=== PATIENT | male | born 1985 | race Caucasian/White ===

== ENCOUNTER 2019-10-26 10:48 | Emergency (ER) | payer BC, SELFPAY ==
--- NOTE | ~2019-10-26 | XR_ITS ---
EXAMINATION: XR ankle RT 2V DATE: 10/26/2019 11:22 INDICATION: Right posterior heel and ankle laceration. TECHNIQUE: 2 views of right ankle were obtained. COMPARISON: None. FINDINGS: Bone alignment is normal. No fracture. Joint spaces are well maintained. IMPRESSION: 1. No fracture or radiopaque foreign body. Reviewed, dictated and finalized at location A.
--- NOTE | 2019-10-26 10:53 | ED.GENADULT ---
HPI - General Adult General Chief complaint: Wound/Laceration Stated complaint: Right heel injury Time Seen by Provider: 10/26/19 11:01 Source: patient Mode of arrival: ambulatory Limitations: no limitations History of Present Illness HPI narrative: 34-year-old male patient presents to the [facility] with complaints of a wound to the right heel. Patient states he went hiking yesterday and got cut with a type of stick. Patient states that he washed out yesterday with hydrogen peroxide and states he just went to bed. Denies taking anything for the pain yesterday or today. Unsure of when his last tetanus shot was. Patient states he is having a lot of pain to the heel and states that is been hard to walk on it. Related Data Home Medications Medication Instructions Recorded Confirmed Men's Multivitamin 10/26/19 Allergies Allergy/AdvReac Type Severity Reaction Status Date / Time citalopram Allergy Unknown Verified 03/31/13 17:54 fluoxetine Allergy Unknown Verified 03/31/13 17:54 infliximab Allergy Unknown Verified 02/19/10 16:51 Review of Systems Review of Systems: Narrative: CONSTITUTIONAL: Denies fever, chills, or sweats. EYES: Denies visual changes, redness, or discharge. ENT: Denies rhinorrhea, congestion, sore throat, or otalgia. CARDIOVASCULAR: Denies chest pain, palpitations, or edema. RESPIRATORY: Denies cough or dyspnea. GASTROINTESTINAL: Denies abdominal pain, nausea, vomiting, or diarrhea. GENITOURINARY: Denies dysuria or hematuria. SKIN: Denies rash or itching. Positive laceration to back of heel since yesterday. MUSCULOSKELETAL: Denies back pain, joint pain, or myalgia. NEUROLOGIC: Denies headache, numbness, or weakness. PSYCHIATRIC: Denies anxiety or depression. [facility] Family History Family History Sibling Family history of malignant neoplasm Grandparent Hypertension Family history of cardiovascular disease Carcinoma of colon Social History Social History Smoking status: Never smoker Second hand tobacco smoke exposure: No Alcohol intake: current Substance use type: marijuana Comments At the time of my signature I agree with nursing past medical history, surgical, social, and family history. There is no relevant family history pertinent to the presenting complaint. Exam Narrative: Exam Narrative: GENERAL: Well-appearing, well-nourished, and in no acute distress. HEAD: Normocephalic, atraumatic. EYES: PERRLA and EOMI. ENT: Nares clear, no rhinorrhea or epistaxis. Mucous membranes moist. NECK: Supple. No lymphadenopathy CHEST: Clear to auscultation. No respiratory distress. HEART: Regular rate and rhythm. No murmur heard. Normal peripheral pulses. ABDOMEN: Soft, nontender, nondistended, normal active bowel sounds. EXTREMITIES: Patient is unable to bear weight and ambulate without pain to right foot. The R ankle is without obvious asymmetry or deformity when compared to the L ankle. Patient can flex/extend, invert/dorys. Patient has approximately 2 cm horizontal laceration noted over the posterior ankle right across the Achilles tendons area. There is no active bleeding at this time. No body tenderness to palpation over the medial or lateral malleolus. Anterior talofibular ligament, pain noted over the posterior talofibular ligament, no pain noted to the calcaneofibular ligament nontender and without swelling. No tenderness or deformity of the midfoot or over the proximal fifth metatarsal. Good DP and posterior tibial pulses and sensation to light touch normal. Talar tilt test is negative for ligament laxity to valgus or vargus stress. Negative anterior draw. Peroneal nerve is intact with strong eversion and plantar flexion. SKIN: Warm, dry, no rash. NEURO: No focal deficits. Alert and oriented x3. Course Reevaluation(s) Reevaluation #1: Notify patient that the x-ray is negative f
[2019-10-26 11:00] VITALS: BP 140/79; PULSE 97; RESP 16; TEMP 36.8; O2SAT 99
[2019-10-26] MEDS: TETANUS,DIPHTHERIA,AC PERTUSSIS ADULT 0.5 ML (ADACEL) IM (11:29)
== END 2019-10-26 11:50 | disposition home or self-care (01) ==
PROVIDERS: Emergency Provider Nurse Practitioner Family; PCP Family Medicine
DX: S91.011A Laceration without foreign body, right ankle, initial encounter (principal); W45.8XXA Other foreign body or object entering through skin, initial encounter; Z23 Encounter for immunization; K50.90 Crohn's disease, unspecified, without complications
CPT/HCPCS: 73600; 90471; 90715; 99213; G0463

== ENCOUNTER 2020-08-14 06:54 | Outpatient (NON) | payer BC, SELFPAY ==
[2020-08-14 21:14] LABS: SARS-CoV-2 RNA PCR Negative
== END 2020-08-14 06:55 ==
LOC: ANHCOVIDDT 07:05
PROVIDERS: PCP Family Medicine; Visit Provider Physician Assistant
DX: Z20.822 Contact with and (suspected) exposure to COVID-19 (principal); R05 Cough
CPT/HCPCS: C9803; U0003; U0005